=== PATIENT | female | born 1945 | race Caucasian/White ===

== ENCOUNTER 2017-08-21 14:05 | Inpatient (IN) | payer MEDICARE ==
[~2017-08-21] VITALS: Ht 167.6 cm; Wt 82.1 kg
--- NOTE | ~2017-08-21 | PROC ---
[address] [address] PROCEDURE REPORT Name: SHAWNEE BARTH Room: [address] IN .R.#: [id number] Admission: 08/21/17 Attend Phys: Sarah Link Discharge: 08/24/17 Date of : 49 Report #: [id number] THIS REPORT FOR: //name// For GI report, please see the Provation report in Perceptive 7 content. By: [id number] Records Staff RANDALL /RICK
[~2017-08-21 14:05] MED LIST: ADVIL PM CAPLE1 EACH; AMBIEN 5 MG TABL5 M1 PO; CALCIUM 500 +1 EAC5 PO; DOXYCYCLINE 10100 MG; HYDROCHLOROTHIA25 M1 PO; HYDROCODON-ACE1 EAC7 PO; IBUPROFEN 200200 M1 PO; LISINOPRIL10 MG; NAPROSYN250 MG; NAPROSYN500 MG PO; NEXIUM 40 MG CA40 M1 PO; NORCO 5-325 TA1 EACH PO; PRAVACHOL40 MG PO; RANITIDINE HCL300 M1 PO; RELAFEN500 MG; SYNTHROID175 MCG PO; TRAMADOL 50 MG50 MG PO; VITAMIN D2000 UNIT PO; ZOLOFT100 MG PO
[2017-08-21 14:06] VITALS: BP 69/43
[2017-08-21] MEDS ORDERED: SYNTHROID175 MCG PO (14:17)
[2017-08-21] MEDS ORDERED: PRAVACHOL40 MG PO (14:18)
[2017-08-21] MEDS ORDERED: MYSOLINE50 MG PO (14:19)
[2017-08-21] MEDS ORDERED: OMEPRAZOLE 20 M20 M1 PO (14:19)
[2017-08-21] MEDS ORDERED: LISINOPRIL10 MG PO (14:19)
[2017-08-21 14:44] LABS: HCO3 18.1 mmol/L (22.0-26.0); PCO2 34.8 mmHg (35.0-45.0); PO2 73.9 mmHg (75.0-100.0); pH 7.333 (7.340-7.450)
[2017-08-21 15:32] LABS: HEMATOCRIT 38.6 % (37.0-47.0); HEMOGLOBIN 12.6 gm/dL (12.0-15.0); MCH 26.7 pg (26.0-34.0); MCHC 32.7 g/dL (28.0-37.0); MCV 81.8 fL (80.0-100.0); MPV 7.7 fl. (7.2-11.1); NUCLEATED RBCS 0 /100WBC; PLATELET COUNT* 306 thou/uL (150-400); RBC 4.72 mil/uL (4.20-5.00); RDW-CV 14.7 % (10.5-14.5); WBC 24.4 thou/uL (4.0-11.0)
[2017-08-21 15:33] LABS: WBC ND thou/uL (4.0-11.0)
[2017-08-21 15:34] LABS: ANION GAP 10 mmol/L (7-16); BUN 19 mg/dL (7-18); CALCIUM 8.1 mg/dL (8.5-10.1); CHLORIDE 103 mmol/L (98-107); CO2 24 mmol/L (21-32); CREATININE 1.3 mg/dL (0.6-1.3); GLUCOSE 108 mg/dL (70-99); POTASSIUM 3.3 mmol/L (3.5-5.1); SODIUM 137 mmol/L (136-145)
[2017-08-21 15:34] LABS: HEMATOCRIT ND % (37.0-47.0)
[2017-08-21 15:35] LABS: MCHC ND g/dL (28.0-37.0); MCV ND fL (80.0-100.0); PLATELET COUNT* ND thou/uL (150-400); RDW-CV ND % (10.5-14.5)
[2017-08-21 15:36] LABS: LYMPHOCYTES ND %; MPV ND fl. (7.2-11.1); POLYS ND %
[2017-08-21 15:40] LABS: MONOCYTES ND %
[2017-08-21 15:41] LABS: ABSOLUTE LYMPHOCYTES ND thou/uL (0.8-5.3); ABSOLUTE MONOCYTES ND thou/uL (0.0-1.2); ABSOLUTE NEUTROPHILS ND thou/uL (1.6-8.1); BASOPHILS ND %; EOSINOPHILS ND %
[2017-08-21 15:42] LABS: ABSOLUTE BASOPHILS ND thou/uL (0.0-0.2); ABSOLUTE EOSINOPHILS ND thou/uL (0.0-0.7); NUCLEATED RBCS ND /100WBC
[2017-08-21 15:43] LABS: ALBUMIN 3.3 g/dL (3.4-5.0); ALKALINE PHOSPHATASE 178 U/L (46-116); LIPASE 354 U/L (73-393); MAGNESIUM 2.1 mg/dL (1.8-2.4); SGOT 32 U/L (15-37); SGPT 28 U/L (30-65); TOTAL BILIRUBIN 0.4 mg/dL (<0.1-1.0); TOTAL PROTEIN 6.7 g/dL (6.4-8.2); TROPONIN-I LEVEL <0.06 ng/mL (<0.06)
[2017-08-21 16:41] LABS: ABSOLUTE BASOPHILS 0.2 thou/uL (0.0-0.2); ABSOLUTE NEUTROPHILS 21.2 thou/uL (1.6-8.1)
[2017-08-21 16:43] LABS: PLATELET ESTIMATE ADEQUATE
[2017-08-21 16:47] LABS: POIKILOCYTOSIS 1+
[2017-08-21 16:49] LABS: MACROCYTES Occasional
[2017-08-21 19:01] LABS: URINE BILIRUBIN NEGATIVE (Negative); URINE BLOOD NEGATIVE (Negative); URINE CLARITY CLEAR; URINE COLOR YELLOW; URINE GLUCOSE-RANDOM NEGATIVE (Negative); URINE KETONES NEGATIVE (Negative); URINE LEUKOCYTES-REFLEX NEGATIVE (Negative); URINE NITRITE-REFLEX NEGATIVE (Negative); URINE PROTEIN NEGATIVE (Negative); URINE UROBILINOGEN 0.2 E.U./dl (0.2-1.0)
[2017-08-21 20:09] VITALS: BP 132/70
[2017-08-21 21:00] VITALS: BP 120/61
[2017-08-21 22:00] VITALS: BP 125/62
[2017-08-22] VITALS (18 sets, daily range): BP systolic 91–139; BP diastolic 38–84
[2017-08-22 04:22] LABS: ABSOLUTE LYMPHOCYTES 0.8 thou/uL (0.8-5.3); ABSOLUTE MONOCYTES 1.2 thou/uL (0.0-1.2); ABSOLUTE NEUTROPHILS 16.9 thou/uL (1.6-8.1); HEMATOCRIT 32.6 % (37.0-47.0); HEMOGLOBIN 11.1 gm/dL (12.0-15.0); LYMPHOCYTES 4.2 %; MCH 27.1 pg (26.0-34.0); MCHC 33.9 g/dL (28.0-37.0); MONOCYTES 6.3 %; NUCLEATED RBCS 0 /100WBC; PLATELET COUNT* 237 thou/uL (150-400); POLYS 89.5 %; RBC 4.08 mil/uL (4.20-5.00); RDW-CV 14.8 % (10.5-14.5); WBC 18.8 thou/uL (4.0-11.0)
[2017-08-22 04:49] LABS: ALBUMIN 2.7 g/dL (3.4-5.0); CALCIUM 7.8 mg/dL (8.5-10.1); CREATININE 1.3 mg/dL (0.6-1.3); TOTAL BILIRUBIN 0.3 mg/dL (<0.1-1.0); TOTAL PROTEIN 5.4 g/dL (6.4-8.2)
[2017-08-22 04:53] LABS: POTASSIUM 2.9 mmol/L (3.5-5.1)
--- NOTE | 2017-08-22 12:46 | EKG ---
[place] [address] ELECTROCARDIOGRAM REPORT Name: TABSHAWNEE DAVID Room: [address] ADM IN M.R.#: [id number] Admission: 08/21/17 Attend Phys: Sarah Link Discharge: Date of : 49 Report #: [id number] THIS REPORT FOR: //name// [facility] ED Test Date: 2017-08-21 Test Time: 14:50:20 Pat Name: SHAWNEE BARTH Department: Room: [facility] Gender: F Customer Data Technician: Jesu ACUNA : 1945 Requested By: Francine Rubio Order Number: [id number] MD: Sriram Dwyer Measurements Intervals [place] Rate: 64 P: 38 AL: 177 QRS: -19 QRSD: 115 T: 61 QT: 454 QTc: 469 Interpretive Statements Sinus rhythm Compared to ECG 09/14/2014 21:51:46 no significant changes noted Electronically Signed On 08-22-2017 12:46:43 QUALITY ASSURANCE MANAGER by Sriram Dwyer [email or web address] <ELECTRONICALLY SIGNED> By: Sriram Dwyer MD, [facility] 08/22/17 1246 1450 1450 Sriram Dwyer MD, FAC /EPI
[2017-08-22 15:40] LABS: HEMATOCRIT 32.3 % (37.0-47.0); HEMOGLOBIN 10.7 gm/dL (12.0-15.0); MCHC 33.2 g/dL (28.0-37.0); MCV 81.1 fL (80.0-100.0); MPV 7.4 fl. (7.2-11.1); RBC 3.98 mil/uL (4.20-5.00); RDW-CV 14.7 % (10.5-14.5); WBC 17.9 thou/uL (4.0-11.0)
[2017-08-22 20:13] LABS: HEMATOCRIT 35.5 % (37.0-47.0); HEMOGLOBIN 11.6 gm/dL (12.0-15.0); MCH 26.7 pg (26.0-34.0); MCHC 32.7 g/dL (28.0-37.0); MCV 81.7 fL (80.0-100.0); MPV 7.9 fl. (7.2-11.1); RBC 4.34 mil/uL (4.20-5.00); RDW-CV 14.8 % (10.5-14.5); WBC 18.4 thou/uL (4.0-11.0)
[2017-08-22 20:26] LABS: ALBUMIN 2.8 g/dL (3.4-5.0); CALCIUM 8.2 mg/dL (8.5-10.1); CREATININE 1.2 mg/dL (0.6-1.3); TOTAL BILIRUBIN 0.6 mg/dL (<0.1-1.0); TOTAL PROTEIN 6.2 g/dL (6.4-8.2)
[2017-08-23] VITALS (12 sets, daily range): BP systolic 95–198; BP diastolic 49–89
[2017-08-23 04:19] LABS: ABSOLUTE BASOPHILS 0.1 thou/uL (0.0-0.2); ABSOLUTE LYMPHOCYTES 2.2 thou/uL (0.8-5.3); ABSOLUTE MONOCYTES 1.3 thou/uL (0.0-1.2); ABSOLUTE NEUTROPHILS 15.7 thou/uL (1.6-8.1); BASOPHILS 0.4 %; HEMATOCRIT 33.7 % (37.0-47.0); HEMOGLOBIN 11.3 gm/dL (12.0-15.0); LYMPHOCYTES 11.2 %; MCH 26.9 pg (26.0-34.0); MCHC 33.5 g/dL (28.0-37.0); MCV 80.4 fL (80.0-100.0); MONOCYTES 6.9 %; MPV 8.1 fl. (7.2-11.1); NUCLEATED RBCS 0 /100WBC; PLATELET COUNT* 243 thou/uL (150-400); POLYS 81.5 %; RBC 4.19 mil/uL (4.20-5.00); RDW-CV 14.9 % (10.5-14.5); WBC 19.3 thou/uL (4.0-11.0)
[2017-08-23 04:37] LABS: ALBUMIN 2.6 g/dL (3.4-5.0); CALCIUM 8.2 mg/dL (8.5-10.1); CREATININE 1.1 mg/dL (0.6-1.3); POTASSIUM 3.6 mmol/L (3.5-5.1); TOTAL BILIRUBIN 0.6 mg/dL (<0.1-1.0)
[2017-08-23 09:29] LABS: INFLUENZA A ANTIGEN None Detected (None Detect); INFLUENZA B ANTIGEN None Detected (None Detect)
[2017-08-24] VITALS: BP 137/81
[2017-08-24 04:50] LABS: ABSOLUTE BASOPHILS 0.1 thou/uL (0.0-0.2); ABSOLUTE EOSINOPHILS 0.1 thou/uL (0.0-0.7); ABSOLUTE LYMPHOCYTES 2.1 thou/uL (0.8-5.3); ABSOLUTE MONOCYTES 0.8 thou/uL (0.0-1.2); ABSOLUTE NEUTROPHILS 9.7 thou/uL (1.6-8.1); BASOPHILS 0.5 %; EOSINOPHILS 0.7 %; HEMATOCRIT 27.2 % (37.0-47.0); LYMPHOCYTES 16.5 %; MCH 27.2 pg (26.0-34.0); MCHC 33.8 g/dL (28.0-37.0); MCV 80.4 fL (80.0-100.0); MONOCYTES 6.6 %; MPV 8.1 fl. (7.2-11.1); NUCLEATED RBCS 0 /100WBC; PLATELET COUNT* 203 thou/uL (150-400); POLYS 75.7 %; RBC 3.38 mil/uL (4.20-5.00); RDW-CV 14.7 % (10.5-14.5); WBC 12.7 thou/uL (4.0-11.0)
[2017-08-24 04:59] LABS: HEMOGLOBIN 9.2 gm/dL (12.0-15.0)
[2017-08-24 05:13] LABS: ALBUMIN 2.4 g/dL (3.4-5.0); CALCIUM 7.8 mg/dL (8.5-10.1); CREATININE 0.9 mg/dL (0.6-1.3); POTASSIUM 3.1 mmol/L (3.5-5.1); TOTAL BILIRUBIN 0.4 mg/dL (<0.1-1.0); TOTAL PROTEIN 5.5 g/dL (6.4-8.2)
[2017-08-24 12:00] VITALS: BP 128/80
[2017-08-24] MEDS ORDERED: MIRALAX17 GM PO (15:10)
[2017-08-24] MEDS ORDERED: CIPRO500 MG PO (15:11)
[2017-08-24] MEDS ORDERED: FLAGYL500 MG PO (15:14)
[2017-08-24 15:21] VITALS: BP 128/80
--- NOTE | 2017-08-25 12:02 | S ---
[place] [address] SURGICAL PATH RPT PROCEDURE Name: SHAWNEE BARTH Room: [address] IN M.R.#: [id number] Admission: 08/21/17 Date of : 49 Discharge: 08/24/17 Report #: [id number] Path Case #: [id number] PATHOLOGY REPORT COLLECTION DATE: 08/24/2017 RECEIVED DATE: 08/24/2017 SUBMITTING PHYS: Dr. Latoya Hua OTHER PHYS: Dr. Dewayne Coto SPECIMEN(S) RECEIVED: A.Transverse colon * * * * * * * * * * * * FINAL DIAGNOSIS: Transverse colon: - Active colitis with mucosal necrosis typical of ischemic colitis, negative for granulomas, viral inclusions and dysplasia. See comment. (RUSSELL:jj; 08/25/2017) COMMENT: The biopsies reveal benign colonic mucosa showing typical features of ischemic colitis with active inflammation in association with necrosis and atrophy of the more superficial aspects in some areas where the deeper aspects of the crypts are preserved. A fragment of inflammatory debris with the "ghosts" of crypts is present. There is no significant basal lymphoplasmacytosis or crypt distortion to elevate a concern for inflammatory bowel disease. (RUSSELL:jj; 08/25/2017) PATHOLOGIST: Donny Grossman M.D. REPORT ELECTRONICALLY SIGNED BY: Donny Grossman M.D. DATE/TIME: 08/25/2017 12:01 * * * * * * * * * * * * GROSS PATHOLOGY: Received in formalin labeled "Shawnee Barth, transverse colonsuspicious for colonic ischemia," are 3 segments of domingo soft tissue measuring 0.4 x 0.6 x 0.2 cm in aggregate dimensions and ranging from 0.2 to 0.3 cm in maximum dimension. The specimen is submitted entirely in cassette A1. (TSD; 08/24/2017) CLINICAL HISTORY: [place] [address] SURGICAL PATH RPT PROCEDURE Name: SHAWNEE BARTH Room: [address]#: [id number] Admission: 08/21/17 Date of : 49 Discharge: 08/24/17 Report #: [id number] Path Case #: [id number] INITIAL CPT CODE(S): A; 69426 Professional services performed by [facility] at [facility], [address] [place], [place] [address] [address]. Technical services performed by [facility] at [address] [place] [address], [address], [place] [address]. [facility] [address] [address] PHONE: [phone] DIRECTOR: Shilo Blackwood M.D. * * * END OF REPORT * * *
--- NOTE | 2017-08-27 14:51 | CON ---
[address] [address] CONSULTATION Name: SHAWNEE BARTH Room: [address] IN .R.#: [id number] Admission: 08/21/17 Attend Phys: Sarah Link Discharge: 08/24/17 Date of : 49 Report #: [id number] THIS REPORT FOR: //name// CC: Charlotte Coronado DATE OF SERVICE: 08/22/2017 REASON FOR CONSULT: Abnormal CT and severe abdominal pain. REQUESTING PHYSICIAN: Dewayne Coronado DO. HISTORY OF PRESENT ILLNESS: This is a 71-year-old female with history of colonoscopy more than 10 years ago, who has frequent upper scopes with dilation of her esophagus as she has intermittent dysphagia. She currently denies any upper GI symptoms. She reports that she was constipated and was trying to move her bowels when she got severe abdominal pain which caused her to lie in her bathroom floor and she was hypotensive with blood in the stool. The patient denies any nausea, vomiting, or hematemesis. Since admission, she had CT of abdomen and pelvis, which showed evidence of thickening of colon. She also has leukocytosis and hematochezia. PAST MEDICAL HISTORY: History of gallbladder disease, status post cholecystectomy; gastroesophageal reflux disease; intermittent dysphagia; hypertension; hypothyroidism; history of rotator cuff repair; thyroidectomy; insomnia; and depression. ALLERGIES: SIGNIFICANT TO PENICILLIN AND CLINDAMYCIN. MEDICATIONS: Please refer to [facility]. 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 She denies tobacco or alcohol use. FAMILY HISTORY: Noncontributory. PHYSICAL EXAMINATION: VITAL SIGNS: Reveals blood pressure of 112/64, respirations 28, pulse of 85, temperature 98.8. LUNGS: Clear to auscultation bilaterally. CARDIOVASCULAR: Regular rate. ABDOMEN: Soft, tender to palpation in all 4 quadrants. Bowel sounds are positive. LABORATORY DATA: Reveal sodium of 138, potassium 2.9, BUN is 19, creatinine . Liver function tests all within normal limits. Calcium is 7.8, [place] [address] CONSULTATION Name: SHAWNEE BARTH Room: [address]#: [id number] Admission: 08/21/17 Attend Phys: Sarah Link Discharge: 08/24/17 Date of : 49 Report #: [id number] is 2.7. INR is 1.0. WBC is 18.8, down from 24. Hemoglobin 11.11 with platelet count of 237. IMAGING: CT of abdomen and pelvis was obtained on admission, which showed diffusely dilated and fluid-filled small bowel. There is also evidence of diffuse thickening of descending colon. The patient has mild diverticulosis without any evidence of diverticulitis. ASSESSMENT AND PLAN: The patient with what appears to be colonic ischemia as she has thickening of her descending colon, leukocytosis, blood per rectum, and severe abdominal pain with history of constipation. She has hypokalemia with potassium of 2.9. We will go ahead and slowly prep her as I give her mag citrate and Dulcolax today and consider a full prep tomorrow for colonoscopy on Thursday. We will make further recommendation after colonoscopy. <ELECTRONICALLY SIGNED> By: Latoya Hua MD 08/27/17 1451 0952 1858Latoya Hua MD /nt
--- NOTE | 2018-01-25 14:47 | CON ---
[facility] [address] [place] [address] CONSULTATION Name: THOMASANDRESHAWNEE HERNANDEZ Room: [address] IN M.R.#: [id number] Admission: 08/21/17 Attend Phys: Sarah Link Discharge: 08/24/17 Date of : 49 Report #: [id number] THIS REPORT FOR: //name// CC: Charlotte Coronado DATE OF SERVICE: 08/22/2017 TYPE OF REPORT: Infectious disease consultation. REASON FOR CONSULTATION: I was asked to evaluate concerning colitis and sepsis. HISTORY OF PRESENT ILLNESS: The patient is a 71-year old who presents with acute onset of nausea, vomiting, abdominal pain and diarrhea. Had one large bowel movement at home and felt so weak she had to come into the Emergency Room. While in the Emergency Room, she had two liquid bowel movements. She had temperature up to 38 degrees. Hypotensive and dehydrated. Has subsequently had bloody diarrhea. She has responded to IV fluids. Placed on Levaquin, metronidazole and meropenem. No chills or sweats. No travel outside the [place]. No recent tainted food exposure. She lives with her who has dementia. They both ate the same foods and he has been well. No recent exposure to other ill children. Denies any previous history of colitis. She had a colonoscopy 10 years ago with a polyp identified. No family history of inflammatory bowel disease. She is a nonsmoker. 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 ALLERGIES: PENICILLIN and CLINDAMYCIN, rash. Does not know if she can take CEPHALOSPORINS. MEDICATIONS: As noted on her MAR including lisinopril, omeprazole, vitamin D, calcium, Ambien and ranitidine. PAST MEDICAL HISTORY: Gastroesophageal reflux, hypothyroidism, hypertension, cholecystectomy, hysterectomy, thyroidectomy, right rotator cuff repair and right foot and knee surgery. FAMILY HISTORY: Noncontributory. SOCIAL HISTORY: Nonsmoker. No significant alcohol intake. REVIEW OF SYSTEMS: No skin rash, arthritis symptoms, headache, pharyngitis symptoms, cough or sputum production. No chest pain. No further vomiting. No dysuria or frequency. Denies back pain. PHYSICAL EXAMINATION: VITAL SIGNS: Temperature 100.6, pulse 89, blood pressure 131/56 and MAP of 81. She has a left subclavian catheter in place. Room air saturation 100%. [place] [address] CONSULTATION Name: SHAWNEE BARTH Room: [address]#: [id number] Admission: 08/21/17 Attend Phys: Sarah Link Discharge: 08/24/17 Date of : 49 Report #: [id number] GENERAL: She is alert and cooperative, appeared generally ill but no acute distress. HEENT: Unremarkable. NECK: Supple. SKIN: Unremarkable. LYMPHATIC: Unremarkable. CHEST: Clear. HEART: Regular. ABDOMEN: Diffusely tender and mild distention. No hepatosplenomegaly or mass. RECTAL: Not performed. EXTREMITIES: Unremarkable. LABORATORY STUDIES: Sodium 138, potassium 2.9, bicarbonate 20 and creatinine 1.3. AST 26, ALT 24, alkaline phosphatase 106, bilirubin 0.3 and lactate initially 2 and now 0.9. Hemoglobin 10.7; platelet count 220,000 and white count initially 24,000 and now 17.9. Differential with 89% segs and 4% lymphs. Sedimentation rate 10. Urinalysis unremarkable. Blood cultures 1 out of 2 showing Gram-positive cocci. RADIOLOGICAL DATA: Chest x-ray was clear. CT scan of the abdomen shows colitis, mostly descending colon. No abscess. IMPRESSION: A 71-year old with enterocolitis with acute renal failure, metabolic acidosis, leukocytosis and bloody diarrhea of acute onset concerning for acute infectious diarrhea versus ischemia. Inflammatory bowel disease, possible, usually would not present this acutely. RECOMMENDATIONS: We will obtain stool cultures, O and P, C. difficile by PCR. Await identification of her blood culture. Continue with broad antibiotic coverage. Continue fluid resuscitation and serial laboratory studies. Agree with endoscopy first of the week. ADDENDUM DATE OF CONSULTATION: 08/22/2017. <ELECTRONICALLY SIGNED> By: Emmanuel Lovett MD 01/25/18 1447 1735 2205Davita Lovett MD /nt
== END 2017-08-24 16:52 | disposition home or self-care (01) | DRG 871 ==
LOC: M.ERS 14:05 → M.TBA-ER 17:34 → M.ICU 19:36 → M.2W 08-23 10:59
PROVIDERS: Personal Emergency Response Attendant; ADMIT Internal Medicine
PROC: 0DBL8ZX Excision of Transverse Colon, Via Natural or Artificial Opening Endoscopic, Diagnostic (ICD-10-PCS; principal; 2017-08-24)
DX: A41.9 Sepsis, unspecified organism (principal); E43 Unspecified severe protein-calorie malnutrition; N17.9 Acute kidney failure, unspecified; E87.2 Acidosis; A04.9 Bacterial intestinal infection, unspecified; I10 Essential (primary) hypertension; K21.9 Gastro-esophageal reflux disease without esophagitis; E89.0 Postprocedural hypothyroidism; K57.30 Diverticulosis of large intestine without perforation or abscess without bleeding; K64.9 Unspecified hemorrhoids; F32.9 Major depressive disorder, single episode, unspecified; E86.0 Dehydration; E78.5 Hyperlipidemia, unspecified; I95.9 Hypotension, unspecified; E87.6 Hypokalemia; F41.9 Anxiety disorder, unspecified; Z90.49 Acquired absence of other specified parts of digestive tract; Z85.850 Personal history of malignant neoplasm of thyroid; Z90.710 Acquired absence of both cervix and uterus; Z79.899 Other long term (current) drug therapy; Z88.0 Allergy status to penicillin; Z88.1 Allergy status to other antibiotic agents

== ENCOUNTER 2017-10-01 15:00 | Inpatient (IN) | payer MEDICARE ==
[~2017-10-01] VITALS: Ht 167.6 cm; Wt 68.9 kg
[~2017-10-01 15:00] MED LIST changes: +CIPRO500 MG PO; +FLAGYL500 MG PO; +LISINOPRIL10 MG PO; +MIRALAX17 GM PO; +MYSOLINE50 MG PO; +OMEPRAZOLE 20 M20 M1 PO
[2017-10-01 15:13] VITALS: BP 111/70
[2017-10-01] MEDS ORDERED: POTASSIUM20 PO (15:17)
[2017-10-01] MEDS ORDERED: CENTRUM SILVER1 EAC2 PO (15:17)
[2017-10-01] MEDS ORDERED: IRON325 PO (15:17)
[2017-10-01 16:06] LABS: ABSOLUTE BASOPHILS 0.1 thou/uL (0.0-0.2); ABSOLUTE LYMPHOCYTES 2.7 thou/uL (0.8-5.3); ABSOLUTE MONOCYTES 1.3 thou/uL (0.0-1.2); ABSOLUTE NEUTROPHILS 7.8 thou/uL (1.6-8.1); BASOPHILS 0.4 %; EOSINOPHILS 0.1 %; HEMATOCRIT 37.2 % (37.0-47.0); HEMOGLOBIN 12.3 gm/dL (12.0-15.0); LYMPHOCYTES 22.7 %; MCH 27.1 pg (26.0-34.0); MCHC 33.1 g/dL (28.0-37.0); MCV 81.9 fL (80.0-100.0); MONOCYTES 10.6 %; MPV 7.9 fl. (7.2-11.1); NUCLEATED RBCS 0 /100WBC; PLATELET COUNT* 298 thou/uL (150-400); POLYS 66.2 %; RBC 4.55 mil/uL (4.20-5.00); RDW-CV 15.9 % (10.5-14.5); WBC 11.9 thou/uL (4.0-11.0)
[2017-10-01 16:21] LABS: ANION GAP 11 mmol/L (7-16); BUN 25 mg/dL (7-18); CALCIUM 9.1 mg/dL (8.5-10.1); CHLORIDE 97 mmol/L (98-107); CO2 27 mmol/L (21-32); CREATININE 1.6 mg/dL (0.6-1.3); GLUCOSE 108 mg/dL (70-99); SODIUM 135 mmol/L (136-145)
[2017-10-01 16:28] LABS: ALBUMIN 3.7 g/dL (3.4-5.0); ALKALINE PHOSPHATASE 65 U/L (46-116); LIPASE 174 U/L (73-393); SGOT 26 U/L (15-37); SGPT 36 U/L (30-65); TOTAL BILIRUBIN 0.4 mg/dL (<0.1-1.0); TOTAL PROTEIN 7.3 g/dL (6.4-8.2); TROPONIN-I LEVEL <0.06 ng/mL (<0.06)
--- NOTE | 2017-10-01 17:10 | NUR ---
EMELY NOTIFIED UPON PT RETURN FROM CT. PT CONNECTED TO MONITOR
[2017-10-01 19:59] VITALS: BP 127/68
[2017-10-01 20:30] VITALS: BP 146/75
[2017-10-01 23:52] VITALS: BP 109/56
[2017-10-02 04:45] LABS: ABSOLUTE BASOPHILS 0.1 thou/uL (0.0-0.2); ABSOLUTE EOSINOPHILS 0.1 thou/uL (0.0-0.7); ABSOLUTE LYMPHOCYTES 2.8 thou/uL (0.8-5.3); ABSOLUTE MONOCYTES 0.9 thou/uL (0.0-1.2); ABSOLUTE NEUTROPHILS 4.3 thou/uL (1.6-8.1); BASOPHILS 0.7 %; EOSINOPHILS 1.1 %; HEMATOCRIT 31.5 % (37.0-47.0); LYMPHOCYTES 34.5 %; MCH 27.1 pg (26.0-34.0); MCHC 32.7 g/dL (28.0-37.0); MCV 82.7 fL (80.0-100.0); MONOCYTES 10.9 %; NUCLEATED RBCS 0 /100WBC; PLATELET COUNT* 241 thou/uL (150-400); POLYS 52.8 %; RBC 3.82 mil/uL (4.20-5.00); WBC 8.1 thou/uL (4.0-11.0)
[2017-10-02 04:56] LABS: HEMOGLOBIN 10.3 gm/dL (12.0-15.0)
--- NOTE | 2017-10-02 05:11 | NUR ---
PATIENT ARRIVED ON THE FLOOR FROM ER. PATIENT ADMISSION HISTORY AND ASSESSMENT WAS COMPLETED CHARTED. IV FLUIDS WERE STARTED AT 100 ML/HR. PATIENT HAD NO COMPLAINTS OF PAIN OR NAUSEA. WILL CONTINUE TO MONITOR.
[2017-10-02 05:25] LABS: ALBUMIN 2.8 g/dL (3.4-5.0); CALCIUM 8.2 mg/dL (8.5-10.1); CREATININE 1.1 mg/dL (0.6-1.3); TOTAL BILIRUBIN 0.4 mg/dL (<0.1-1.0); TOTAL PROTEIN 5.6 g/dL (6.4-8.2)
[2017-10-02 14:04] LABS: % SATURATION 10 % (20-39); IRON 28 ug/dL (50-175)
--- NOTE | 2017-10-02 14:27 | EKG ---
[place] [address] ELECTROCARDIOGRAM REPORT Name: SHAWNEE BARTH Room: [address] ADM IN .R.#: [id number] Admission: 10/01/17 Attend Phys: Sarah Link Discharge: Date of : 49 Report #: [id number] THIS REPORT FOR: //name// [facility] ED Test Date: 2017-10-01 Test Time: 15:34:46 Pat Name: SHAWNEE BARTH Department: Room: [facility] Gender: F Double Cut [place]: [place] : 1945 Requested By: Francine Webb Order Number: [id number] MD: Valentin Baltazar Measurements Intervals [place] Rate: 60 P: 51 [place]: 182 QRS: -14 QRSD: 115 T: 34 QT: 426 QTc: 426 Interpretive Statements Sinus rhythm Incomplete right bundle branch block Baseline wander in lead(s) V4,V5 Compared to ECG 08/21/2017 14:50:20 Incomplete right bundle-branch block now present Electronically Signed On 10-02-2017 14:27:13 CDT by Valentin Baltazar [email or web address] <ELECTRONICALLY SIGNED> By: Valentin Baltazar MD, FACC 10/02/17 1427 1534 1534 Valentin Baltazar MD, FACC /EPI
[2017-10-02 15:43] VITALS: BP 166/85
--- NOTE | 2017-10-02 17:22 | NUR ---
PATIENT IS ALERT AND ORIENTED TODAY, VERY PLEASANT. UP AD RAF IN ROOM. NO COMPLAINTS OF ANY KIND TODAY. VITAL SIGNS STABLE ON ROOM AIR. CALL LIGHT IS IN REACH, WILL CONTINUE TO MONITOR.
[2017-10-02 20:00] VITALS: BP 140/77
--- NOTE | 2017-10-03 05:09 | NUR ---
Patient remains alert and oriented times four. No complaints of pain or discomfort noted. IV remains patent. Patient able to perform all self care needs. No questions verbalized. Able to sleep through the night, did request both ambien at the same time. This is her home dose. Will continue to monitor.
[2017-10-03 06:59] LABS: HEMATOCRIT 32.3 % (37.0-47.0); HEMOGLOBIN 10.7 gm/dL (12.0-15.0); MCH 27.4 pg (26.0-34.0); MCHC 33.2 g/dL (28.0-37.0); MCV 82.6 fL (80.0-100.0); MPV 7.7 fl. (7.2-11.1); RBC 3.9 mil/uL (4.20-5.00); WBC 5.7 thou/uL (4.0-11.0)
[2017-10-03 07:20] LABS: ALBUMIN 2.8 g/dL (3.4-5.0); CALCIUM 8.5 mg/dL (8.5-10.1); CREATININE 0.9 mg/dL (0.6-1.3); POTASSIUM 3.4 mmol/L (3.5-5.1); TOTAL BILIRUBIN 0.3 mg/dL (<0.1-1.0); TOTAL PROTEIN 5.9 g/dL (6.4-8.2)
[2017-10-03 09:15] VITALS: BP 160/81
[2017-10-03 10:00] VITALS: BP 160/81
[2017-10-03] MEDS ORDERED: CIPRO500 M1 PO (12:01)
[2017-10-03] MEDS ORDERED: FLAGYL500 MG PO (12:04)
[2017-10-03] MEDS ORDERED: TYLENOL325 MG PO (12:06)
[2017-10-03 12:15] VITALS: BP 160/81
--- NOTE | 2017-10-03 12:28 | NUR ---
I ASSUMED CARE OF THE PATIENT AT 0700. SHE IS ALERT AND ORIENTED X4 AND IS UP AD RAF. BED IS IN THE LOW LOCKED POSITION AND CALL LIGHT IS IN REACH. HOURLY ROUNDING WAS COMPLETED AND PATIENT NEEDS ARE MET. PAIN IS DENIED. IV WAS REMOVED AFTER ANTIBIOTIC THERAPY WAS COMPLETED. PATIENT'S DAUGHTER CAME TO GIVE HER A RIDE HOME AND SHE WAS D/C'D AT 1215. SCRIPTS WERE GIVEN AND FOLLOW UP APPOINTMENTS WERE UNDERSTOOD.
--- NOTE | 2017-10-12 15:01 | CON ---
[address] [address] CONSULTATION Name: SHAWNEE BARTH Room: [address] IN M.R.#: [id number] Admission: 10/01/17 Attend Phys: Sarah Link Discharge: 10/03/17 Date of : 49 Report #: [id number] THIS REPORT FOR: //name// CC: Charlotte Coronado DATE OF SERVICE: 10/02/2017 ADDENDUM I have personally seen and examined the patient and reviewed labs and imaging. The patient with recent colonoscopy in 08/2017, who presents with leukocytosis, abdominal pain, history of constipation, and anemia. She has had history of recurrent colonic ischemia and I believe she is presenting with the same. We will put her on good bowel regimen including Linzess. She usually follows [facility]. We will put her on 2 weeks of antibiotic and asked her to follow up with her doctor at [facility]. The patient is agreeable with plan. <ELECTRONICALLY SIGNED> By: Latoya Hua MD 10/12/17 1501 1705 1954Latoya Hua MD /nt
--- NOTE | 2017-10-12 15:01 | CON ---
[address] [address] CONSULTATION Name: TABSHAWNEE HERNANDEZ Room: [address] IN M.R.#: [id number] Admission: 10/01/17 Attend Phys: Sarah Link Discharge: 10/03/17 Date of : 49 Report #: [id number] THIS REPORT FOR: //name// CC: Charlotte Porter Dewayne Coronado [facility] DICTATED BY: Penelope Bryant [facility] DATE OF SERVICE: 10/02/2017 Please note at the time of this dictation, the patient was seen and physically examined by myself. REASON FOR CONSULTATION: Abdominal pain, recurrent ischemic colitis. HISTORY OF PRESENT ILLNESS: This 71-year-old female who was recently discharged from here approximately 5 weeks ago after presenting with severe abdominal pain and abnormal CT findings. She underwent a colonoscopy on 08/20/[address] Hua showing severe edema and friability of the descending and transverse colon with recommendation to repeat in 6 weeks since he was not able to get to the cecum. The patient states that her last colonoscopy prior to that was 10 years ago, but she has had preferred upper endoscopies done for her dysphagia with dilatation. Prior to coming in at this time, the patient states she went to follow up with her GI doctor and was immediately, because of her low brood pressure and her tummy pain, was sent to the Emergency Room. ALLERGIES: PENICILLIN, CLINDAMYCIN. MEDICATIONS: From home, please refer to the hospital MAR. PAST MEDICAL HISTORY: Acid reflux with intermittent dysphagia and dilatation, hypertension, hypothyroidism followed by Dr. Flynn. Last thyroid, TSH was normal a couple of months ago, insomnia and depression. PAST SURGICAL HISTORY: Cholecystectomy, rotator cuff repair, thyroidectomy. FAMILY HISTORY: Noncontributory. 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 Denies any alcohol, tobacco or illegal drug use. REVIEW OF SYSTEMS: Twelve-point review of systems is essentially negative except what is mentioned [place] [address] CONSULTATION Name: SHAWNEE BARTH Room: [address] IN [facility].#: [id number] Admission: 10/01/17 Attend Phys: Sarah Link Discharge: 10/03/17 Date of : 49 Report #: [id number] PHYSICAL EXAMINATION: VITAL SIGNS: Temperature 37, pulse 61, respirations 17, blood pressure 104/61. HEART: Regular rate and rhythm. LUNGS: Clear. ABDOMEN: Soft, positive bowel sounds in all 4 quadrants with left-sided tenderness noted to palpation. LABORATORY DATA: Hemoglobin is 10.3, hematocrit 31.5, hemoglobin is 8.1, her platelets are 241. Sodium 139, potassium 4, chloride 106, CO2 of 26, BUN is 15, creatinine 1.1, GFR is 49, glucose is 85. CT that was done shows a large hiatal hernia, mural thickening in the distal and descending and proximal sigmoid colon with inflammatory stranding noted throughout as well. IMPRESSION: 1. Recurrent colonic ischemia from August, status post colonoscopy. 2. Constipation. 3. Leukocytosis. 4. Abdominal pain. 5. Anemia. PLAN: 1. Recommendations for Ángel post discharge secondary to her kidney function, her GFR being 49. Regarding the MiraLax, recommend her to take once a day. We will give her 20 mg of Dulcolax now. 2. Office visit with ALY Benitez in 2 weeks. 3. Antibiotics will need to be sent home probably likely for 2 weeks. Thank you for allowing us to participate in this patient's care. Please do not hesitate to call with any questions in regard to this consult. <ELECTRONICALLY SIGNED> By: Latoya Hua MD 10/12/17 1501 1232 1503Latoya uHa MD /nt
== END 2017-10-03 12:15 | disposition home or self-care (01) | DRG 371 ==
LOC: M.ERS 15:00 → M.TBA-ER 17:40 → M.3W 17:40
PROVIDERS: Nurse Practitioner Adult Health; Physician Assistant; ADMIT Internal Medicine
DX: A04.9 Bacterial intestinal infection, unspecified (principal); N17.0 Acute kidney failure with tubular necrosis; K55.1 Chronic vascular disorders of intestine; E87.1 Hypo-osmolality and hyponatremia; E44.0 Moderate protein-calorie malnutrition; K21.9 Gastro-esophageal reflux disease without esophagitis; E03.9 Hypothyroidism, unspecified; I10 Essential (primary) hypertension; E87.6 Hypokalemia; I95.9 Hypotension, unspecified; K59.00 Constipation, unspecified; D72.829 Elevated white blood cell count, unspecified; D64.9 Anemia, unspecified; E86.0 Dehydration; E86.1 Hypovolemia; E78.5 Hyperlipidemia, unspecified; F32.9 Major depressive disorder, single episode, unspecified; F41.9 Anxiety disorder, unspecified; Z79.899 Other long term (current) drug therapy; Z90.49 Acquired absence of other specified parts of digestive tract; Z90.710 Acquired absence of both cervix and uterus; Z88.1 Allergy status to other antibiotic agents; Z88.0 Allergy status to penicillin; Z68.24 Body mass index [BMI] 24.0-24.9, adult

== ENCOUNTER → 2018-10-29 | Outpatient (CLI) | payer MEDICARE ==
[~2018-10-29] MED LIST changes: +CENTRUM SILVER1 EAC2 PO; +CIPRO500 M1 PO; +IRON325 PO; +POTASSIUM20 PO; +TYLENOL325 MG PO
== END ==
LOC: M.RAD 10-22 09:00
DX: K44.9 Diaphragmatic hernia without obstruction or gangrene (principal)

== ENCOUNTER → 2019-10-27 | Outpatient (CLI) | payer MEDICARE | LOC: M.RAD 11:00 | DX: N64.52 Nipple discharge (principal) ==

== ENCOUNTER → 2020-07-23 | Outpatient (CLI) | payer MEDICARE | LOC: M.LAB 05:52 | PROVIDERS: ATTEND Anesthesiology | DX: E87.6 Hypokalemia (principal) ==

== ENCOUNTER 2021-01-02 16:17 | Observation (INO) | payer MEDICARE ==
[~2021-01-02] VITALS: Ht 167.6 cm; Wt 74.8 kg
--- NOTE | ~2021-01-02 | OP ---
[address] [address] OPERATIVE REPORT Name: SHAWNEE BARTH Room: [address] [place]#: [id number] Admission: 01/02/21 Attend Phys: Rosaura Bruce DO Discharge: Date of : 49 Report #: [id number] THIS REPORT FOR: cc: Charlotte Coto MD, Pamela MD Brock,Rosaura Reece DO ~ DATE OF SURGERY: 01/02/2021 PREPROCEDURE DIAGNOSIS: Acute appendicitis. POSTPROCEDURE DIAGNOSIS: Acute appendicitis. FINDINGS: Mild inflammation of the appendix in the right lower quadrant. SURGEON: Rosaura Bruce DO CO-SURGEON: Javier Haro, PGY1 HEALTH EDUCATION COORDINATOR: None. PROCEDURE PERFORMED: Laparoscopic appendectomy. ANESTHESIA: General endotracheal with local. ESTIMATED BLOOD LOSS: 2 mL. DRAINS: None. SPECIMENS: Appendix. COMPLICATIONS: None. CONDITION: Stable. DISPOSITION: PACU to the floor. HISTORY OF PRESENT ILLNESS: The patient is a very saumya 75-year-old female who presented to the ER after being seen by her primary care physician for several days of right lower quadrant abdominal pain. She was actually sent to the hospital for an outpatient CT which was read as early acute appendicitis and was then referred to the Emergency Room. On physical exam, she did have pain in the right lower quadrant. CT scan was reviewed and did appear to show early acute appendicitis. She was then consented for laparoscopic appendectomy. Risks discussed included bleeding, infection, pain, scar formation, injury to bowel or bladder, hernia at the incision sites, need for an open procedure and risks of general anesthesia. The patient understood these risks and elected to proceed. [address] [address] OPERATIVE REPORT Name: SHAWNEE BARTH Room: [address] [place]#: [id number] Admission: 01/02/21 Attend Phys: Rosaura Bruce DO Discharge: Date of : 49 Report #: [id number] DESCRIPTION OF PROCEDURE: The patient was brought to the operating room. She was placed supine on the operating room table. SCDs were placed on bilateral lower extremities. Ancef was given in the perioperative period. General endotracheal anesthesia was induced by Anesthesia without difficulty. Frank catheter was then placed utilizing sterile technique. Abdomen was prepped and draped in standard sterile fashion. Time-out was performed to verify the patient and procedure. A 10 mL of 0.5% Marcaine were injected in the infraumbilical area. Incision was made with an 11 blade. Cautery was used for hemostasis. S retractors were used to visualize the fascia. The fascia was grasped and elevated between 2 Kochers. Fascia was incised using cautery. Peritoneum was bluntly entered using a Nadeen clamp. Finger was introduced into the abdomen to ensure that there were no chelle-incisional adhesions, none were identified. Two stitches of 0 Vicryl placed on the fascia. Candy trocar was introduced and secured with 0 Vicryl stitches. Abdomen was insufflated. The patient was placed slightly head down and tilted to the left. Camera was introduced and a brief anterior abdominal exploration was undertaken with no significant findings. Two 5 mm trocars were introduced, one in the left lower quadrant, one in the suprapubic area, both under direct visualization. Camera was turned to the right lower quadrant. Cecum was identified and was traced to the base of the appendix. The entirety of the appendix could then be visualized. It was elevated to the anterior abdominal wall. [place] was used to create a window at the base of the appendix and mesentery. A 45 mm purple load Endo-GUY stapler was introduced and the base of the appendix was clamped and stapled without difficulty. The mesentery was then also taken with a 45 mm purple load Endo-GUY stapler. Specimen was placed within an EndoCatch bag. Staple lines were inspected. There was one tiny area of bleeding, which was easily controlled with cautery. Insufflation was briefly taken down and there was no further bleeding noted. The patient was returned to the supine position. Trocars were removed under direct visualization. There was no bleeding noted from the peritoneum. The abdomen was completely desufflated. Candy trocar was removed and EndoCatch bag was removed with the specimen intact. It was handed off for permanent pathology. Kochers were placed on the fascia of the infraumbilical port. The previously placed 0 Vicryl stitches were removed and a 0 Vicryl stitch was placed in [id number] fashion with excellent approximation of the fascia. An additional 10 mL of 0.5% Marcaine were injected to the fascia. All wounds were closed with 4-0 Monocryl. A total of 30 mL of 0.5% Marcaine were used to anesthetize the wounds. Wounds were then cleansed and covered with Dermabond. The patient was then allowed to awaken from anesthesia, was extubated, and transported to the recovery room with no further [address] [address] OPERATIVE REPORT Name: SHAWNEE BARTH Room: [facility] [place]#: [id number] Admission: 01/02/21 Attend Phys: Rosaura Bruce DO Discharge: Date of : 49 Report #: [id number] difficulties. Counts were correct x 2 at the conclusion of the case. Frank was removed prior to leaving the operating room. By: 1908 1944Cerica Bruce DO /nt
[~2021-01-02 16:17] MED LIST changes: -HYDROCHLOROTH12.5 M2 PO; -LEVOTHYROXINE150 MC1 PO; -OMEPRAZOLE40 MG PO
[2021-01-02 16:37] VITALS: BP 159/87
[2021-01-02 17:09] LABS: ABSOLUTE BASOPHILS 0.1 thou/uL (0.0-0.2); ABSOLUTE EOSINOPHILS 0.1 thou/uL (0.0-0.7); ABSOLUTE LYMPHOCYTES 2.4 thou/uL (0.8-5.3); ABSOLUTE MONOCYTES 0.9 thou/uL (0.0-1.2); ABSOLUTE NEUTROPHILS 3.1 thou/uL (1.6-8.1); EOSINOPHILS 1.7 %; HEMATOCRIT 33.5 % (37.0-47.0); HEMOGLOBIN 11.4 gm/dL (12.0-15.0); LYMPHOCYTES 36.3 %; MCH 26.3 pg (26.0-34.0); MCHC 33.9 g/dL (28.0-37.0); MCV 77.8 fL (80.0-100.0); MONOCYTES 13.6 %; MPV 7.1 fl. (7.2-11.1); NUCLEATED RBCS 0 /100WBC; PLATELET COUNT* 312 thou/uL (150-400); POLYS 47.4 %; RBC 4.31 mil/uL (4.20-5.00); RDW-CV 19.6 % (10.5-14.5); WBC 6.6 thou/uL (4.0-11.0)
[2021-01-02 17:17] LABS: CALCIUM 8.7 mg/dL (8.5-10.1); CREATININE 0.9 mg/dL (0.6-1.3); POTASSIUM 3.6 mmol/L (3.5-5.1)
[2021-01-02 17:22] LABS: ALBUMIN 3.7 g/dL (3.4-5.0); TOTAL BILIRUBIN 0.3 mg/dL (<0.1-1.0); TOTAL PROTEIN 7.3 g/dL (6.4-8.2)
[2021-01-02 18:30] VITALS: BP 167/88
[2021-01-02 21:05] VITALS: BP 151/74
[2021-01-02 23:36] VITALS: BP 151/56
[2021-01-02] MEDS ORDERED: HYDROCHLOROTH12.5 M2 PO (23:51)
[2021-01-02] MEDS ORDERED: LEVOTHYROXINE150 MC1 PO (23:52)
[2021-01-02] MEDS ORDERED: OMEPRAZOLE40 MG PO (23:53)
[2021-01-03 03:49] VITALS: BP 101/65; BP 104/57
--- NOTE | 2021-01-03 04:48 | NUR ---
Alert and oriented x 4. She arrived to floor at 2100. She did have a lap appy. She has 3 lap sites to her abdomen and they are approximated with dermabond. She's had nausea med and pain med x 1 this shift. She did have urine output per rubin during the procedure but it was removed. She hasn't voided yet and she wants to wait awhile so she can sleep more before I bladder scan her. Her vitals have been stable.
--- NOTE | 2021-01-03 06:52 | NUR ---
She didn't void. Bladder scan read 331 mls. She did not want to get up out of bed. She says she is very tired and will try to go later.
[2021-01-03 07:55] VITALS: BP 119/63
--- NOTE | 2021-01-03 09:11 | NUR ---
Pt is A&O. Resides at home alone. Independent. Supportive kids that are involved in POC. No DME. No hx of HH or SNF. Goal is home at dc, no needs anticipated. Pt had appy last night. Anticipate dc soon
[2021-01-03 10:08] VITALS: BP 119/63
--- NOTE | 2021-01-03 11:43 | EKG ---
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: REID : [id number] Requested By: Ken Cazares Order Number: [id number] MD: Sriram Dwyer Measurements Intervals [place] Rate: 56 P: 17 VA: 186 QRS: -15 QRSD: 107 T: 27 QT: 459 QTc: 444 Interpretive Statements Sinus rhythm Borderline left axis deviation RSR' in V1 or V2, right VCD or RVH Compared to ECG 10/01/2017 15:34:46 Right ventricular hypertrophy now present RSR' in V1 or V2 now present Incomplete right bundle-branch block no longer present Electronically Signed On 01-03-2021 11:43:48 CDT by Sriram Dwyer [email or web address] <ELECTRONICALLY SIGNED> By: Sriram Dwyer MD, [facility] 01/03/21 1143 1704 1704 Sriram Dwyer MD, [facility] /EPI
--- NOTE | 2021-01-03 14:30 | NUR ---
PATIENT DISCHARGED TO HOME. DISCHARGE PAPERS REVIEWED AND SIGNED. PRESCRIPTION AND INFORMATION SHEETS GIVEN. IV REMOVED. DR FAJARDO NOTIFIED OF PATIENT BEING UNABLE TO VOID, PATIENT HAS PROLAPSED BLADDER AND HAS CHRONIC TROUBLE. DR FAJARDO OKAY WITH DISCHARGE. PATIENT DENIES ANY FURTHER NEEDS. PATIENT TAKEN BY WHEELCHAIR TO EXIT. LEFT WITH DAUGHTER.
[2021-01-03 14:47] VITALS: BP 119/63
== END 2021-01-03 14:30 | disposition home or self-care (01) ==
LOC: M.ERS 16:17 → M.TBA-ER 17:51 → M.3W 21:08
PROVIDERS: Emergency Medicine Emergency Medical Services; ADMIT Surgery; ATTEND Surgery
DX: K35.80 Unspecified acute appendicitis (principal); Z20.822 Contact with and (suspected) exposure to COVID-19; R11.2 Nausea with vomiting, unspecified; K21.9 Gastro-esophageal reflux disease without esophagitis; I10 Essential (primary) hypertension; E03.9 Hypothyroidism, unspecified; Z79.899 Other long term (current) drug therapy

== ENCOUNTER → 2021-01-02 | Outpatient (CLI) | payer MEDICARE ==
[~2021-01-02] MED LIST changes: +HYDROCHLOROTH12.5 M2 PO; +LEVOTHYROXINE150 MC1 PO; +OMEPRAZOLE40 MG PO
== END ==
LOC: M.CT 11:00
PROVIDERS: ATTEND Nurse Practitioner Gerontology
DX: K44.9 Diaphragmatic hernia without obstruction or gangrene (principal); K57.30 Diverticulosis of large intestine without perforation or abscess without bleeding; K42.9 Umbilical hernia without obstruction or gangrene; I25.10 Atherosclerotic heart disease of native coronary artery without angina pectoris; J98.11 Atelectasis; R10.32 Left lower quadrant pain; M47.815 Spondylosis without myelopathy or radiculopathy, thoracolumbar region

== ENCOUNTER → 2021-02-18 | Outpatient (CLI) | payer MEDICARE ==
[~2021-02-18] MED LIST changes: +HYDROCHLOROTH12.5 M2 PO; +LEVOTHYROXINE150 MC1 PO; +OMEPRAZOLE40 MG PO
== END ==
LOC: M.RAD 13:20
PROVIDERS: ATTEND Internal Medicine
DX: Z12.31 Encounter for screening mammogram for malignant neoplasm of breast (principal); N64.89 Other specified disorders of breast

== ENCOUNTER → 2021-02-26 | Outpatient (CLI) | payer MEDICARE | LOC: M.RAD 02-20 08:34 | PROVIDERS: ATTEND Radiology Diagnostic Radiology | DX: R92.8 Other abnormal and inconclusive findings on diagnostic imaging of breast (principal) ==

== ENCOUNTER → 2021-03-05 | Outpatient (CLI) | payer MEDICARE ==
--- NOTE | 2021-03-07 16:06 | PATH ---
[address] [address] PATHOLOGY RPT PROCEDURE Name: SHAWNEE BARTH Room: [facility].#: [id number] Admission: 03/05/21 Date of : 49 Discharge: Report #: [id number] Path Case #: [id number] [facility] Accession Number: [id number] . 01 Material submitted: . breast - LEFT BREAST CALCIFICATIONS. Modifiers: left . 01 Clinical history: . LEFT BREAST STEREOTACTIC BIOPSY FOR CALCIFICATIONS RAD/STEROTACTIC BX/MASS . 02 Diagnosis: Left breast calcifications, stereotactic biopsy: - DUCTAL CARCINOMA IN SITU (DCIS), NUCLEAR GRADE II, CRIBRIFORM AND SOLID TYPES, SPANNING AT LEAST 2 MM WITH CALCIFICATIONS. - Fibroadenomatosis. - See comment. . Protocol Posting Date: November 2020 . CASE SUMMARY: (DCIS OF THE BREAST: Biopsy) . SPECIMEN . Procedure ___ Other: Stereotactic biopsy . Specimen Laterality ___ Left . TUMOR . +Tumor Site ___ Not specified . Histologic Type ___ Ductal carcinoma in situ (DCIS) . +Architectural Patterns ___ Cribriform ___ Solid . Nuclear Grade ___ Grade II (intermediate) . Necrosis ___ Not identified . +[place] [address] PATHOLOGY RPT PROCEDURE Name: SHAWNEE BARTH Room: [facility].#: [id number] Admission: 03/05/21 Date of : 49 Discharge: Report #: [id number] Path Case #: [id number] ___ Present in DCIS ___ Present in non-neoplastic tissue . ADDITIONAL FINDINGS . +Additional Findings: Fibroadenomatosis . SPECIAL STUDIES . +Breast Biomarker Studies: Pending on A1 . (RUSSELL:pit; 03/07/2021) [facility] 03/07/2021 1234 Local . 02 Comment: Foci of DCIS are seen at least focally in each of A1 through A3. ER/[place] studies are pending on A1 and will be the subject of an addendum report. Reviewed with Dr. Shilo Blackwood on 03/07/2021 who agrees with the diagnosis. Yen Robert ([place] Breast Navigator) notified at approximately 1500 on 03/07/2021. (RUSSELL:pit; 03/07/2021) . 02 Electronically signed: . Donny Grossman MD, Pathologist NPI- [id number] . 01 Gross description: . The specimen is received in formalin, labeled "Shawnee Barth, left breast calcifications". Received are multiple needle cores of fibrofatty tissue measuring 4.2 x 4.0 x 0.8 cm in aggregate dimensions. The specimen is submitted entirely in cassettes A1 through A3. The cold ischemic time is 10 minutes. The total formalin fixation time is 31 hours and 25 minutes. ([facility]; 03/06/2021) [facility] 03/06/2021 1134 Local . 02 Pathologist provided ICD-10: D05.12 . 02 CPT . 603524 Specimen Comment: A courtesy copy of this report has been sent to [phone] Specimen Comment: [phone] Specimen Comment: Report sent to / DR ROBERT Performed at: [address] [id number] MD Sukhi Ojeda MD Phone: [phone] [place] [address] PATHOLOGY RPT PROCEDURE Name: SHAWNEE BARTH Room: [facility]#: [id number] Admission: 03/05/21 Date of : 49 Discharge: Report #: [id number] Path Case #: [id number] Performed at: [address] [place] [address] [id number] MD Donny Grossman MD Phone: [phone]
== END | disposition home or self-care (01) ==
LOC: M.RAD 12:33
PROVIDERS: ATTEND Internal Medicine
DX: R92.1 Mammographic calcification found on diagnostic imaging of breast (principal); D05.12 Intraductal carcinoma in situ of left breast; Z98.890 Other specified postprocedural states; Z79.899 Other long term (current) drug therapy; Z88.0 Allergy status to penicillin; Z88.2 Allergy status to sulfonamides

== ENCOUNTER → 2021-03-19 | Outpatient (CLI) | payer MEDICARE ==
[2021-03-19 13:33] LABS: CREATININE 1.1 mg/dL (0.6-1.3)
== END ==
LOC: M.LAB 12:30 → M.MRI 13:30
PROVIDERS: ATTEND Surgery
DX: R92.8 Other abnormal and inconclusive findings on diagnostic imaging of breast (principal)

== ENCOUNTER → 2021-04-04 | Day surgery (SDC) | payer MEDICARE ==
[~2021-04-04] MED LIST changes: +PRIMIDONE50 MG PO; +ULTRAM 50MG TAB50 MG PO
[2021-04-04 09:11] LABS: HEMATOCRIT 36.7 % (37.0-47.0); HEMOGLOBIN 12.1 gm/dL (12.0-15.0); MCH 26.3 pg (26.0-34.0); MCHC 33.1 g/dL (28.0-37.0); MCV 79.5 fL (80.0-100.0); MPV 7.2 fl. (7.2-11.1); RBC 4.61 mil/uL (4.20-5.00); RDW-CV 16.9 % (10.5-14.5); WBC 6.2 thou/uL (4.0-11.0)
[2021-04-04 09:15] LABS: CALCIUM 8.5 mg/dL (8.5-10.1); POTASSIUM 3.7 mmol/L (3.5-5.1)
--- NOTE | 2021-04-04 14:52 | OP ---
[address] [address] OPERATIVE REPORT Name: SHAWNEE BARTH Room: [facility].#: [id number] Admission: 04/04/21 Attend Phys: Rosaura Bruce DO Discharge: Date of : 49 Report #: [id number] THIS REPORT FOR: cc: Charlotte Coto MD, Pamela MD Brock,Rosaura Reece DO ~ DATE OF SURGERY: 04/04/2021 PREOPERATIVE DIAGNOSIS: Left breast ductal carcinoma in situ. POSTOPERATIVE DIAGNOSIS: Left breast ductal carcinoma in situ. FINDINGS: Tag and clip present in the left breast. Moderate residual hematoma was present from the previous biopsy. SURGEON: Antonino Bruce DO CO-SURGEON: Javier Haro, PGY-1 SITE LEADER: YOGESH Carmona PROCEDURE PERFORMED: Left breast tag guided lumpectomy. ANESTHESIA: General LMA and local. ESTIMATED BLOOD LOSS: 10 mL. DRAINS: None. SPECIMENS: Left breast lumpectomy and left inferolateral margin. COMPLICATIONS: None. CONDITION OF PATIENT: Stable. DISPOSITION: PACU to home. HISTORY OF PRESENT ILLNESS: The patient is a very pleasant 75-year-old female who presented to my office with new microcalcifications on her mammogram. She underwent an ultrasound-guided biopsy, which confirmed the presence of DCIS. She underwent an MRI and was seen by Oncology. After further workup was completed, it was decided to move forward with a tag guided lumpectomy. Prior to surgery, she presented to Radiology and underwent placement of an RFID tag in the left breast. On the day of surgery, she was seen in preop. Informed consent was obtained. Risks and benefits were discussed in detail. [place] [address] OPERATIVE REPORT Name: SHAWNEE BARTH Room: [facility].#: [id number] Admission: 04/04/21 Attend Phys: Rosaura Bruce DO Discharge: Date of : 49 Report #: [id number] DESCRIPTION OF PROCEDURE: The patient was brought to the operating room. She was placed supine on the operating room table. SCDs were placed on bilateral lower extremities. Ancef was given in the perioperative period. General LMA anesthesia was induced by Anesthesia without difficulty. Hologic probe was used to identify the placement of the clip in the left breast. Left breast was prepped and draped in the standard sterile fashion. Time-out was performed to verify the patient and procedure. A 10 mL of 0.5% Marcaine were injected into the periareolar area. A curvilinear periareolar incision was made with #15 blade. Cautery was used for hemostasis. Hologic probe was then used to guide us to the area of the RFID clip. A lumpectomy specimen was then created around the clip. This specimen was marked in the superior and lateral direction. We did note that there was a fairly good sized hematoma which remained from the biopsy and this hematoma was a the inferolateral aspect of our lumpectomy specimen. I was somewhat worried that we had a close margin here, so while the specimen was taken to Radiology, we did obtain a portion of the inferior lateral margin. This was also marked in the superior and lateral direction and was placed in formalin. At this point, Radiology then returned with our mammographic picture of the specimen and it appeared that we had both the clip and the tag and the area where the clip was closest to the margin was the area where we had taken our additional margin. The cavity was copiously irrigated until clear. Hemostasis was assured. Wound was then closed in a layered fashion using deep and superficial stitches of 3-0 Vicryl in an inverted interrupted fashion. Skin wound was closed with a running 4-0 Monocryl. A total of 30 mL of 0.5% Marcaine was used to anesthetize the wound. Wound was then cleansed and covered with Dermabond. The patient was then allowed to awaken from anesthesia, was extubated and transported to the recovery room with no further difficulties. Counts were correct at the conclusion of the case. <ELECTRONICALLY SIGNED> By: Rosaura Bruce DO 04/04/21 1452 1056 [id number] Bruce DO /nt
== END | disposition home or self-care (01) ==
LOC: M.SUR 06:08 → M.ULTRA 09:00 → M.SUR 09:00
PROVIDERS: Anesthesiology; ATTEND Surgery
DX: D05.12 Intraductal carcinoma in situ of left breast (principal); R92.1 Mammographic calcification found on diagnostic imaging of breast; Z98.890 Other specified postprocedural states; Z79.899 Other long term (current) drug therapy; Z20.822 Contact with and (suspected) exposure to COVID-19; Z88.0 Allergy status to penicillin; Z88.8 Allergy status to other drugs, medicaments and biological substances

== ENCOUNTER → 2021-07-31 | Outpatient (CLI) | payer MEDICARE | LOC: M.LAB 15:58 | PROVIDERS: ATTEND Internal Medicine Gastroenterology | DX: Z01.812 Encounter for preprocedural laboratory examination (principal); E87.6 Hypokalemia; Z20.822 Contact with and (suspected) exposure to COVID-19 ==